=== PATIENT | male | born 1950 | race Caucasian/White ===

== ENCOUNTER 2017-11-20 09:36 | Emergency (ER) | payer MEDICARE ==
[2017-11-20] MEDS ORDERED: LIDOCAINE PATCH 5% TOP PRN (10:17)
[2017-11-20] MEDS ORDERED: DEXAMETHASONE 10 MG/ML VIAL PO STA (10:17)
[2017-11-20] MEDS ORDERED: oxyCODONE 5 MG TABLET PO STA (10:17)
--- NOTE | 2017-11-20 10:20 | ED Physician Documentation ---
History of Present Illness - Stated complaint Stated Complaint: R LEG PX - Chief complaint Chief Complaint: Back Pain - Additonal information Additional information: hx from pt 67 male hx HNP and sciatica s/p surgery several yr ago at [facility] to ED today with pain from R buttock all the way to the foot recent lifting and work around the house no fever no abd pain or swelling no numbness or weakness no urinary sx - no hematuria, incont, retention no recent surgery or injections Review of Systems Constitutional: denies: Fever, Chills Cardiac: denies: Chest pain / pressure Respiratory: denies: Dyspnea GI: denies: Abdominal Pain, Abdominal Swelling : denies: Dysuria, Unable to Void, Incontinent Skin: denies: Rash Musculoskeletal: reports: Back pain (low mid to right) Neurologic: denies: Focal weakness, Numbness Endocrine: denies: Easy bruising / bleeding Immunocompromised: denies: Immunocompromised PD PAST MEDICAL HISTORY - Past Medical History Past Medical History: Yes Cardiovascular: None Respiratory: None Endocrine/Autoimmune: Type 2 diabetes GI: None : None HEENT: None Psych: None Musculoskeletal: None Derm: None - Past Surgical History Past Surgical History: No Ortho: Knee replacement, Spine surgery - Present Medications Home Medications: Ambulatory Orders Medication Instructions Recorded Confirmed Epinephrine [Epipen 2-Pedro] 0.3 mg IM BID 10/21/15 10/21/15 Epinephrine [Epipen 2-Pedro] 0.3 mg IM ONCE PRN #1 pkg 10/21/15 Lidocaine Patch 5% [Lidoderm Patch] 1 each TOP DAILY PRN #10 patch 11/20/17 Lovastatin 20 mg PO 11/20/17 Oxycodone HCl/Acetaminophen 1 each PO Q6HR PRN #8 tablet 11/20/17 [Percocet 5-325 mg Tablet] PARoxetine [Paxil] 30 mg PO DAILY 11/20/17 11/20/17 Primidone 250 mg PO DAILY 11/20/17 11/20/17 metFORMIN [Glucophage] 11/20/17 predniSONE [Deltasone] 40 mg PO DAILY 3 Days #6 tablet 11/20/17 raNITIdine [Zantac] 11/20/17 - Allergies Allergies/Adverse Reactions: Allergies Allergy/AdvReac Type Severity Reaction Status Date / Time codeine Allergy Mild Hives Verified 11/20/17 09:45 bee venom protein (honey bee) Allergy Hives Verified 11/20/17 09:46 - Social History Does the pt smoke?: No Smoking Status: Never smoker Does the pt drink ETOH?: No Does the pt have substance abuse?: No - Immunizations Immunizations are current?: Yes - POLST Patient has POLST: No PD ED PE NORMAL - Vitals Vital signs reviewed: Yes - Cardiac Cardiac: RRR - Respiratory Respiratory: No respiratory distress - Abdomen Abdomen: Soft, Non tender, Other (no pulsatile mass) - Back Back: Other (mild TTP approx L34 and right lumbar soft tissue, no redness warmth or swelling) - Derm Derm: Normal color - Neuro Neuro: Alert and oriented X 3, commercial cleaner 2-12 intact, No motor deficit, No sensory deficit, Other (denies saddle anesthesia, nl sensation, hip flex knee ext foot dorsi plantar and great toe ext all 5/5, patellar DTR 2/4, no clonus, + SLR on R ) Results - Vitals Vitals: Vital Signs - 24 hr 11/20/17 09:40 Temperature 36.0 C L Heart Rate 86 Respiratory 15 Rate Blood Pressure 185/79 H O2 Saturation 98 Oxygen O2 Source Room air PD MEDICAL DECISION MAKING - ED course ED course: 67 and diabetic so has some risk factors so far sx for 4 days same as prior HNP occurring after lifting no fever or signs of infection and abd pain or pulsatile mass to suggest AAA or dissection + SLR but otherwise nl neuro exam no weekend MRI at [facility] and seems reasonable to tx conservatively with steroids pain meds mm relaxants lido patches for the moment pt has PMD appt later tis week and if not improved by then, given risk factors of age and DM, would consider MRI imaging explained this to pt and that plain films would be unlikely to be if use - Sepsis Event Vital Signs: Vital Signs - 24 hr 11/20/17 09:40 Temperature 36.0 C L Heart Rate 86 Respiratory 15 Rate Blood Pressure 185/79 H O2 Saturation 98 Oxygen O2 Source Room air Departure - Departure Disposition: 01 Home, Self Care Clinical Impression: Back pain Qualifiers: Back pain location: low back pain Chronicity: acute Back pain laterality: right Sciatica presence: with sciatica Sciatica laterality: sciatica of right side Qualified Code(s): M54.41 - Lumbago with sciatica, right side Sciatica Qualifiers: Laterality: right Qualified Code(s): M54.31 - Sciatica, right side Condition: Good Instructions: ED Sciatica, ED Neck Back Pain General Follow-Up: Gonzalez Mcdaniel MD [Primary Care Provider] - (this week as scheduled - if symptoms persist consider MRI imaging) Prescriptions: Oxycodone HCl/Acetaminophen [Percocet 5-325 mg Tablet] 1 each PO Q6HR PRN #8 tablet PRN Reason: Severe Pain Lidocaine Patch 5% [Lidoderm Patch] 1 each TOP DAILY PRN #10 patch PRN Reason: Pain predniSONE [Deltasone] 40 mg PO DAILY 3 Days #6 tablet Comments: The steroids will decrease inflammation of the sciatic nerve and help relieve the pain down your leg - however, the steroids will also cause your blood sugars to run high for the next few days but they will return to normal after the course of steroids is complete Do not take NSAIDS such as ibuprofen and naproxen while on the steroids Continue your muscle relaxant I also prescribed lidocaine patches - you may wear one patch for up to 12 hr a day applied to the most painful site And I also prescribed a small amount of percocet - this is a narcotic medication which can be addictive and should be used very sparingly and only if the pain is not controlled with the other medications. Also percocet contains tylenol so do not take other medications containing tylenol while using percocet As we discussed, if your symptoms are not better with this treatment plan, you may need a MRI - please follow up with your PMD this week as scheduled If worse (fever, numbness, weakness, urinary symptoms, increasing pain, back or leg or abdominal swelling) come back to the ER for further evaluation
[2017-11-20] MEDS ORDERED: CHERRY SYRUP 10 ML UDC PO ONE (10:32)
[2017-11-20 10:42] VITALS: BP 159/76
== END 2017-11-20 10:41 | disposition home or self-care (01) ==
LOC: ED 09:36
DX: M54.41 Lumbago with sciatica, right side (principal); E11.9 Type 2 diabetes mellitus without complications; Z79.84 Long term (current) use of oral hypoglycemic drugs
CPT/HCPCS: 99283; A9270

== ENCOUNTER 2017-11-24 08:02 | Emergency (ER) | payer MEDICARE ==
[2017-11-24] MEDS ORDERED: KETOROLAC 60 MG/2 ML VIAL IM STA (09:05)
[2017-11-24] MEDS ORDERED: DEXAMETHASONE 10 MG/ML VIAL PO STA (09:05)
--- NOTE | 2017-11-24 09:09 | ED Physician Documentation ---
PD HPI BACK PAIN - Stated complaint Stated Complaint: RIGHT LEG PX - Chief complaint Chief Complaint: Back Pain - History obtained from History obtained from: Patient, Family - History of Present Illness Timing - onset: How many weeks ago (1) Timing - duration: Weeks (1) Timing - details: Abrupt onset, Still present Location: Lower, Right Quality: Pain, Spasm, Sharp, Similar to prior episodes Associated symptoms: No: Fever, Weakness, Numbness, Incontinent of urine, Unable to urinate, Hematuria, Incontinent of stool Improves with: Rest, Ice, Position, Meds Worsened by: Movement, Lifting, Twisting Contributing factors: Lifting, Twisting Similar symptoms before: Diagnosis (sciatica) Recently seen: Emergency Dept - Additional information Additional information: 67-year-old male is working building a house and he is developed sciatica. He was treated here in the emergency department last week with 6 mg of dexamethasone and some Solu-Medrol he was on a steroid for 3 days and over the last 2 days he has had an increase in his symptoms and was unable to sleep last night secondary to symptoms even with the use of Percocet. He has pain radiating down the right leg across right thigh and the anterior portion of the right calf. Review of Systems Constitutional: denies: Fever Eyes: denies: Decreased vision Ears: denies: Ear pain Nose: denies: Congestion Respiratory: denies: Cough GI: denies: Vomiting Skin: denies: Rash Musculoskeletal: reports: Back pain, Extremity pain. denies: Neck pain, Extremity swelling Neurologic: denies: Generalized weakness, Focal weakness, Numbness PD PAST MEDICAL HISTORY - Past Medical History Cardiovascular: None Respiratory: None Endocrine/Autoimmune: Type 2 diabetes GI: None : None HEENT: None Psych: None Musculoskeletal: None Derm: None - Past Surgical History Past Surgical History: No Ortho: Knee replacement, Spine surgery - Present Medications Home Medications: Ambulatory Orders Medication Instructions Recorded Confirmed Epinephrine [Epipen 2-Pedro] 0.3 mg IM BID 10/21/15 10/21/15 Epinephrine [Epipen 2-Pedro] 0.3 mg IM ONCE PRN #1 pkg 10/21/15 Lidocaine Patch 5% [Lidoderm Patch] 1 each TOP DAILY PRN #10 patch 11/20/17 Lovastatin 20 mg PO 11/20/17 Oxycodone HCl/Acetaminophen 1 each PO Q6HR PRN #8 tablet 11/20/17 [Percocet 5-325 mg Tablet] PARoxetine [Paxil] 30 mg PO DAILY 11/20/17 11/20/17 Primidone 250 mg PO DAILY 11/20/17 11/20/17 metFORMIN [Glucophage] 11/20/17 predniSONE [Deltasone] 40 mg PO DAILY 3 Days #6 tablet 11/20/17 raNITIdine [Zantac] 11/20/17 Dexamethasone [Decadron] 4 mg PO DAILY #5 tablet 11/24/17 HYDROcod/ACETAM 5/325 [[place] 5/325] 1 - 2 ea PO Q6H PRN #15 tablet 11/24/17 - Allergies Allergies/Adverse Reactions: Allergies Allergy/AdvReac Type Severity Reaction Status Date / Time codeine Allergy Mild Hives Verified 11/20/17 09:45 bee venom protein (honey bee) Allergy Hives Verified 11/20/17 09:46 - Social History Does the pt smoke?: No Smoking Status: Never smoker Does the pt drink ETOH?: No Does the pt have substance abuse?: No - Immunizations Immunizations are current?: Yes - POLST Patient has POLST: No PD ED PE NORMAL - Vitals Vital signs reviewed: Yes (hypertensive ) - General General: Alert and oriented X 3, No acute distress, Well developed/nourished - HEENT HEENT: Atraumatic, PERRL, EOMI - Respiratory Respiratory: No respiratory distress - Back Back: No CVA TTP, Other (There is point tenderness to the lower lumbar paraspinous muscles into the right sciatic notch. ) - Derm Derm: Normal color, Warm and dry, No rash - Extremities Extremities: No deformity, No edema - Neuro Neuro: Alert and oriented X 3, negotiations director 2-12 intact, No motor deficit, No sensory deficit, Normal speech Eye Opening: Spontaneous Motor: Obeys Commands Verbal: Oriented GCS Score: 15 - Psych Psych: Normal mood, Normal affect Results - Vitals Vitals: Vital Signs - 24 hr 11/24/17 11/24/17 08:07 10:32 Temperature 36.0 C L Heart Rate 74 72 Respiratory 16 16 Rate Blood Pressure 178/83 H 146/81 H O2 Saturation 95 98 Oxygen O2 Source Room air PD MEDICAL DECISION MAKING - ED course Complexity details: reviewed old records, considered differential, d/w patient, d/w family ED course: 67-year-old male with sciatica has had some relief with treatment given last week and now has pain again that is not relieved with Percocet. Here in the emergency department he is administered dexamethasone 10 mg orally and we will put him on a 5 day course of 4 mg per day. In addition today he is administered Toradol 60 mg IM. He required IM dilaudid as well. - Sepsis Event Vital Signs: Vital Signs - 24 hr 11/24/17 11/24/17 08:07 10:32 Temperature 36.0 C L Heart Rate 74 72 Respiratory 16 16 Rate Blood Pressure 178/83 H 146/81 H O2 Saturation 95 98 Oxygen O2 Source Room air Departure - Departure Disposition: Home, Self Care Clinical Impression: Sciatica Qualifiers: Laterality: right Qualified Code(s): M54.31 - Sciatica, right side Condition: Stable Instructions: ED Sciatica Follow-Up: Gonzalez Mcdaniel MD [Primary Care Provider] - Prescriptions: Dexamethasone [Decadron] 4 mg PO DAILY #5 tablet HYDROcod/ACETAM 5/325 [[place] 5/325] 1 - 2 ea PO Q6H PRN #15 tablet PRN Reason: Pain Discharge Date/Time: 11/24/17 10:32
[2017-11-24] MEDS ORDERED: HYDROmorphone 1 MG/ML CARPUJECT IM STA (09:58)
[2017-11-24] MEDS ORDERED: ONDANSETRON ODT 4 MG TABLET TL STA (09:58)
[2017-11-24 10:33] VITALS: BP 146/81
== END 2017-11-24 10:32 | disposition home or self-care (01) ==
LOC: ED 08:02
DX: M54.31 Sciatica, right side (principal)
CPT/HCPCS: 96372; 99283; J1170; Q0162

== ENCOUNTER 2018-03-13 22:01 | Emergency (ER) | payer MEDICARE ==
[2018-03-13] MEDS ORDERED: predniSONE 20 MG TABLET PO STA (22:22)
[2018-03-13] MEDS ORDERED: hydrOXYzine PAMOATE 25 MG CAPSULE PO STA (22:22)
--- NOTE | 2018-03-13 22:28 | ED Physician Documentation ---
PD HPI SKIN - Stated complaint Stated Complaint: HIVES - Chief complaint Chief Complaint: Wound - History obtained from History obtained from: Patient - History of Present Illness Timing - onset: Other (Without clear cause he developed very itchy hives especially on the back tonight around 6 PM that were progressive without throat swelling or shortness of breath. He took Benadryl twice without relief.) Review of Systems Constitutional: denies: Fever, Chills Throat: denies: Sore throat Respiratory: denies: Dyspnea, Cough GI: denies: Nausea, Vomiting PD PAST MEDICAL HISTORY - Past Medical History Past Medical History: Yes Cardiovascular: None Respiratory: None Endocrine/Autoimmune: Type 2 diabetes GI: None : None HEENT: None Psych: None Musculoskeletal: None Derm: None - Past Surgical History Past Surgical History: No Ortho: Knee replacement, Spine surgery - Present Medications Home Medications: Ambulatory Orders Medication Instructions Recorded Confirmed Epinephrine [Epipen 2-Pedro] 0.3 mg IM BID 10/21/15 10/21/15 Lovastatin 20 mg PO 11/20/17 PARoxetine [Paxil] 30 mg PO DAILY 11/20/17 11/20/17 Primidone 250 mg PO DAILY 11/20/17 11/20/17 metFORMIN [Glucophage] 11/20/17 raNITIdine [Zantac] 11/20/17 predniSONE [Prednisone] 60 mg PO DAILY 5 Days #15 tablet 03/13/18 - Allergies Allergies/Adverse Reactions: Allergies Allergy/AdvReac Type Severity Reaction Status Date / Time codeine Allergy Mild Hives Verified 03/13/18 22:06 bee venom protein (honey bee) Allergy Hives Verified 03/13/18 22:06 - Social History Does the pt smoke?: No Smoking Status: Never smoker Does the pt drink ETOH?: No Does the pt have substance abuse?: No - Immunizations Immunizations are current?: Yes - POLST Patient has POLST: No PD ED PE NORMAL - Vitals Vital signs reviewed: Yes - General General: Alert and oriented X 3, No acute distress - HEENT HEENT: Pharynx benign - Respiratory Respiratory: No respiratory distress, Clear bilaterally - Abdomen Abdomen: Non tender - Derm Derm: Other (Extensive urticaria on the back but mostly spared everywhere else, it is symmetric.) - Neuro Neuro: Alert and oriented X 3, Normal speech Results - Vitals Vitals: Vital Signs - 24 hr 03/13/18 22:04 Temperature 36.0 C L Heart Rate 75 Respiratory 16 Rate Blood Pressure 167/76 H O2 Saturation 95 Oxygen O2 Source Room air PD MEDICAL DECISION MAKING - ED course ED course: 67-year-old gentleman with urticaria with unclear cause, no evidence of anaphylaxis. He was pretty miserable with the itching and we discussed epinephrine, but given his blood pressure and advanced age and the lack of anaphylaxis I think it is the better part of valor to treat this with just steroids and histamine blockers. Departure - Departure Disposition: 01 Home, Self Care Clinical Impression: Urticaria Condition: Good Record reviewed to determine appropriate education?: Yes Instructions: ED Urticaria Prescriptions: predniSONE [Prednisone] 60 mg PO DAILY 5 Days #15 tablet Comments: Call your doctor to arrange a follow-up appointment, make the next available appointment. In the interim, return anytime if worse or if new symptoms develop. Your blood pressure was elevated today on check into the emergency department. This does not mean that you have hypertension, it is a common phenomenon to come to the emergency department and have elevated blood pressure. I recommend that you see your primary care physician within the week to have it rechecked when you are feeling better.
[2018-03-13 22:37] VITALS: BP 149/61
== END 2018-03-13 22:33 | disposition home or self-care (01) ==
LOC: ED 22:01
DX: L50.9 Urticaria, unspecified (principal); R03.0 Elevated blood-pressure reading, without diagnosis of hypertension; E11.9 Type 2 diabetes mellitus without complications; Z79.84 Long term (current) use of oral hypoglycemic drugs
CPT/HCPCS: 99283; A9270; J7512